=== PATIENT | male | born 1965 | race Caucasian/White ===

== ENCOUNTER 2020-03-23 09:10 | Emergency (ER) | payer BC, SELFPAY ==
[~2020-03-23] VITALS: Ht 177.8 cm; Wt 83.9 kg
[2020-03-23 09:12] VITALS: BP 147/93
--- NOTE | 2020-03-23 09:28 | NUR ---
Dr Gilbert in tent examining patient
--- NOTE | 2020-03-23 09:43 | NUR ---
54 y/o male from home c/o cough, nasal congestion, and body aches since yesterday. RR even and unlabored. Productive cough noted at this time. Skin warm, dry, intact. VSS medhx: HTN
[2020-03-23 09:58] VITALS: BP 147/93
--- NOTE | 2020-03-23 09:59 | NUR ---
Patient discharged with v/s stable. Written and verbal after care instructions given and explained. Patient alert, oriented and verbalized understanding of instructions. Ambulatory with steady gait. All questions addressed prior to discharge. ID band removed. Patient advised to follow up with PMD. Rx of Prednisone 20mg given. Patient educated on indication of medication including possible reaction and side effects. Opportunity to ask questions provided and answered.
--- NOTE | 2020-03-23 10:55 | NUR ---
Received + covid results from lab.
== END 2020-03-23 10:55 | disposition home or self-care (01) ==
LOC: MED 09:10
DX: U07.1 COVID-19 (principal); R05 Cough; I10 Essential (primary) hypertension
CPT/HCPCS: 71045; 87426; 99284; U0003

== ENCOUNTER 2020-03-23 11:41 | Emergency (ER) | payer BC, SELFPAY ==
[~2020-03-23] VITALS: Ht 177.8 cm; Wt 83.9 kg
[2020-03-23 11:46] VITALS: BP 149/94
--- NOTE | 2020-03-23 11:57 | NUR ---
54 y/o male from home + covid c/o cough, nasal congestion, and body aches x 1 day. RR even and unlabored. Dry cough noted at this time. Denies chest pain/sob. Awake and alert. VSS medhx: HTN
--- NOTE | 2020-03-23 11:58 | NUR ---
Dr Gilbert examining patient
--- NOTE | 2020-03-23 11:59 | NUR ---
Pharmacy called for patient medication.
[2020-03-23] MEDS: COMMUNICATION ORDER MC ONE (13:25)
[2020-03-23] MEDS: NACL 0.9% IV SCH (13:25)
[2020-03-23] MEDS: [UNRECOGNIZED DRUG - OTHER] IV SCH (13:25)
--- NOTE | 2020-03-23 14:02 | NUR ---
Patient resting in bed awake and alert. Denies pain at this time. VSS
[2020-03-23 14:28] VITALS: BP 144/90
--- NOTE | 2020-03-23 14:28 | NUR ---
2x2 gauze placed to IV site, bleeding controlled at this time
--- NOTE | 2020-03-23 14:28 | NUR ---
Patient discharged with v/s stable. Written and verbal after care instructions given and explained. Patient verbalized understanding. Ambulatory with steady gait. All questions addressed prior to discharge. Advised to follow up with PMD.
--- NOTE | 2020-03-24 16:49 | NUR ---
Covid results received from lab. Results = Positive. Hard copy requested from lab and placed in infection controls mailbox.
== END 2020-03-23 14:28 | disposition home or self-care (01) ==
LOC: MED 11:41
DX: U07.1 COVID-19 (principal); I10 Essential (primary) hypertension
CPT/HCPCS: 96365; 99284; J7030